=== PATIENT | male | born 1955 | race Caucasian/White ===

== ENCOUNTER → 2016-06-09 | Outpatient (CLI) | payer OTHER ==
[~2016-06-09] MED LIST: ALPR0.5T3 PO; AMLO10TA2 PO; ASPI1TAB69 PO; ASPI81TA81; AUGM875T PO; AZIT500T2 PO; CETI10 PO; CLOP75TA PO; FLUT1SPR5 EACH NARE; PRAV40TA2 PO; RANI150T PO; [UNRECOGNIZED DRUG - CODE] PO; [UNRECOGNIZED DRUG - CODE] PO
== END ==
LOC: CLAB 11:54
PROVIDERS: ATTEND Family Medicine
DX: R53.83 Other fatigue (principal)
CPT/HCPCS: 36415; 84443

== ENCOUNTER → 2016-06-09 | Outpatient (CLI) | payer OTHER ==
--- NOTE | 2016-06-09 12:28 | RADRPT ---
EXAM DATE/TIME: 06/09/2016 11:47 [place] COMPARISON: No previous studies available for comparison. INDICATIONS : Pain and swelling posterior heel with no injury. MEDICAL HISTORY : None. SURGICAL HISTORY : None. ENCOUNTER: Initial ACUITY: >1 year PAIN SCORE: 4/10 LOCATION: Left Heel FINDINGS: There is a large spur at the insertion of Achilles tendon with soft tissue edema and possible fluid a round this. Exam would suggest a partial, old Achilles tendon rupture versus tendinopathy. MRI imagin g of the foot would be of benefit for further assessment. The bony mineralization of the calcaneus is within normal limits. CONCLUSION: Large spur at the insertion of the Achilles tendon with soft tissue swelling suggesting tendinopathy/ tendinitis. There are some bone fragments within the distal Achilles as well suggesting an old, parti al Achilles tendon rupture. Ramón Chambers MD on June 09, 2016 at 12:25 Board Certified Radiologist. This report was verified electronically.
== END ==
LOC: HRAD 11:05
PROVIDERS: ATTEND Family Medicine
DX: M77.32 Calcaneal spur, left foot (principal)
CPT/HCPCS: 73650

== ENCOUNTER → 2016-09-09 | Outpatient (CLI) | payer OTHER ==
[~2016-09-09] MED LIST changes: -AUGM875T PO; -AZIT500T2 PO; -[UNRECOGNIZED DRUG - CODE] PO; -[UNRECOGNIZED DRUG - CODE] PO
[2016-09-09 08:29] LABS: HDL CHOLESTEROL 47.2 MG/DL (40.0-60.0)
== END ==
LOC: CLAB 07:27
PROVIDERS: ATTEND Family Medicine
DX: F32.9 Major depressive disorder, single episode, unspecified (principal); R10.13 Epigastric pain
CPT/HCPCS: 36415; 80061; 83690; 84443